=== PATIENT | male | born 1980 | race Hispanic/Latino ===

== ENCOUNTER → 2020-07-12 | Outpatient (CLI) | payer OTHER ==
--- NOTE | 2020-07-12 17:49 | Diagnostic Imaging Report ---
EXAM: Complete Abdominal Ultrasound INDICATION: Upper abdominal pain COMPARISON: CT abdomen/pelvis on 10/03/2007. TECHNIQUE: Transverse and longitudinal images of the upper abdomen were obtained. FINDINGS: Liver: Size: 13.4 cm in the right midclavicular line, normal Appearance: Diffusely echogenic with areas of fat sparing, smooth contour Mass: No focal masses Spleen: Size: 11.4 x 3.4 x 4.1 cm in length, normal Echogenicity: Normal Mass: No focal masses Gallbladder: Stones/Sludge: None Wall: 0.3 cm Appearance: No pericholecystic fluid or hydrops. Sonographic Benites's Sign: Negative Bile Ducts: Intrahepatic Ducts: No dilatation Extrahepatic Ducts: Common bile duct measures 0.3 cm, no dilatation Pancreas: Not well visualized due to overlying bowel gas. Right Kidney: Size: 9.3 x 5.1 x 5.1 cm Echogenicity: Normal Parenchymal thickness: Normal Collecting System: No hydronephrosis Stone: None Cyst/Mass: None Left Kidney: Size: 12.1 x 5.8 x 4.5 cm Echogenicity: Normal Parenchymal thickness: Normal Collecting System: No hydronephrosis Stone: None Cyst/Mass: None Vessels: Aorta: Visualized portions are normal Inferior Vena Cava: Visualized portions are normal Main Portal Vein: 0.8 cm, normal size with hepatopetal flow. Free Fluid: No ascites or pleural effusion IMPRESSION: Diffusely echogenic liver with areas of fat sparing around the gallbladder, compatible with hepatic steatosis. Otherwise normal sonographic examination. Signed by: Sheldon Wheatley MD on 07/12/2020 5:45 PM
== END ==
LOC: US 16:38
PROVIDERS: ATTEND Family Medicine
DX: R10.10 Upper abdominal pain, unspecified (principal); K76.0 Fatty (change of) liver, not elsewhere classified
CPT/HCPCS: 76700